=== PATIENT | female | born 1945 | race Caucasian/White ===

== ENCOUNTER 2021-06-21 12:50 | Emergency (ER) | payer BC, MEDICAID ==
[~2021-06-21] VITALS: Ht 167.6 cm; Wt 108.0 kg
[2021-06-21 13:34] VITALS: BP 177/60
== END 2021-06-21 20:14 | disposition left against medical advice (07) ==
LOC: ER 12:51
DX: R10.9 Unspecified abdominal pain (principal); Z53.21 Procedure and treatment not carried out due to patient leaving prior to being seen by health care provider